=== PATIENT | male | born 1990 | race Caucasian/White ===

== ENCOUNTER 2023-07-12 06:57 | Day surgery (SDC) | payer MEDICAID ==
[~2023-07-12] VITALS: Ht 180.3 cm; Wt 64.0 kg
[2023-07-12] MEDS ORDERED: MIDAZOLAM HCL 5 MG/5 ML VIAL ONE ×2 (08:13→10:46)
[2023-07-12] MEDS ORDERED: MEPERIDINE 100 MG INJ. 100 MG/ML VIAL ONE (08:13)
[2023-07-12] MEDS ORDERED: DIPHENHYDRAMINE INJ 50 MG/ML VIAL ONE (10:46)
[2023-07-12] MEDS ORDERED: ONDANSETRON HCL 4 MG/2 ML VIAL ONE (11:41)
[2023-07-12 12:12] VITALS: O2SAT 100
[2023-07-12 16:48] VITALS: BP_SYST 120; PULSE 75; RESP 19
== END 2023-07-12 12:30 | disposition home or self-care (01) ==
LOC: SDS 06:57 → SMU 07:02 → SDS 12:30
PROVIDERS: ATTEND Internal Medicine Gastroenterology
DX: R19.4 Change in bowel habit (principal); K63.5 Polyp of colon; K64.8 Other hemorrhoids; K29.50 Unspecified chronic gastritis without bleeding; K44.9 Diaphragmatic hernia without obstruction or gangrene; K58.9 Irritable bowel syndrome, unspecified; Z87.891 Personal history of nicotine dependence; Z79.899 Other long term (current) drug therapy
CPT/HCPCS: 45380; 45385; 43239; 99152; 87081; 36415; 88305; 88312; 88313; 99153; G0378; J1200; J2250; J2405; J2175